=== PATIENT | male | born 1970 | race Caucasian/White ===

== ENCOUNTER → 2022-04-10 | Outpatient (CLI) | payer MEDICAID ==
[2022-04-10 14:53] LABS: African American GFR (CKD) 66.5 (60.0-200.0); Albumin 3.6 g/dL (3.8-4.9); Albumin/Globulin Ratio 0.5 (1.60-3.17); Anion Gap 10.8 mmol/L (10.00-18.00); BUN/Creat Ratio 27.93 Ratio (12.00-20.00); Blood Urea Nitrogen 39.1 mg/dL (9.0-27.0); Calcium 8.7 mg/dL (8.7-10.3); Carbon Dioxide 20.9 mmol/L (20.0-27.5); Globulin 7.1 g/dL (1.6-3.3); Non-African American GFR(CKD) 57.4 (60.0-200.0); Potassium 4.2 mmol/L (3.5-5.5); Total Bilirubin 1.3 mg/dL (0.30-1.20); Total Protein 10.6 g/dL (6.2-8.2)
[2022-04-11 08:48] LABS: C-Peptide 4.3 ng/mL (0.81-3.85)
== END | disposition home or self-care (01) ==
LOC: LABWHC1 09:26
PROVIDERS: ATTEND Internal Medicine Endocrinology, Diabetes & Metabolism
DX: E11.65 Type 2 diabetes mellitus with hyperglycemia (principal)
CPT/HCPCS: 36415; 80053; 82024; 82533; 84681

== ENCOUNTER 2022-10-19 18:05 | Emergency (ER) | payer MEDICAID, OTHER ==
[2022-10-19 18:52] VITALS: TEMP 98.4
[2022-10-19 21:08] VITALS: BP 104/77; PULSE 75; RESP 14
[2022-10-19] MEDS ORDERED: SODIUM CHLORIDE 0.9% 1,000 ML IV ONE (21:42)
[2022-10-19 22:01] LABS: Basophils # (A) 0.1 k/uL (0-0.2); Basophils % (A) 1 %; Eosinophils # (A) 0.1 k/uL (0-0.7); Eosinophils % (A) 1 %; HGB 13.4 gm/dL (13.0-17.5); Lymphocytes # (A) 1.6 k/uL (1.0-4.8); Lymphocytes % (A) 18 %; MCH 30.7 pg (25.0-35.0); MCHC 34.5 g/dL (31.0-37.0); Mean Platelet Volume 7.3; Monocytes # (A) 0.6 k/uL (0-1.0); Monocytes % (A) 6 %; Neutrophils # (A) 6.8 k/uL (1.3-7.7); Neutrophils % (A) 73 %; Platelet Count 177 k/uL (150-450); RBC 4.38 m/uL (4.30-5.90); RDW 13.9 % (11.5-15.5); WBC 9.3 k/uL (3.8-10.6)
[2022-10-19 22:12] LABS: Albumin 4.4 g/dL (3.5-5.0); Appearance,Urine Clear (Clear); Bilirubin,Urine Negative (Negative); Blood,Urine Negative (Negative); Calcium 9.2 mg/dL (8.4-10.2); Color,Urine Yellow; Glucose,Urine (UA) 3+ (Negative); Hyaline Casts,Urine 8 /lpf (0-2); Ketones,Urine Negative (Negative); Leukocyte Esterase,Urine Negative (Negative); Mucus,Urine Occasional /hpf; Nitrite,Urine Negative (Negative); PH, Urine 6.5 (5.0-8.0); Potassium 4.2 mmol/L (3.5-5.1); Protein,Urine 1+ (Negative); RBC,Urine 3 /hpf (0-5); Total Bilirubin 2.1 mg/dL (0.2-1.3); Total Protein 7.8 g/dL (6.3-8.2); WBC,Urine 2 /hpf (0-5)
--- NOTE | 2022-10-19 22:46 | CT ---
EXAMINATION TYPE: CT abdomen pelvis w con DATE OF EXAM: 10/19/2022 COMPARISON: None HISTORY: abdominal pain CT DLP: 1063.6 mGycm Automated exposure control for dose reduction was used. CONTRAST: Performed with IV Contrast, patient injected with 80ml mL of Isovue 300. Images obtained from the diaphragm to the floor of the pelvis with the IV contrast. The lung bases show mild subsegmental atelectasis left lower lobe. Heart size is normal. No pericardi al effusion. There are clips from cholecystectomy. Liver spleen and stomach pancreas appear intact. The bile ducts are not dilated. There is no adrenal mass. Kidneys show satisfactory contrast opacification. No hydronephrosis. There is 1 cm cortical cyst interpolar left kidney. No retroperitoneal adenopathy. Ureters are nondilated. The bladder is almost empty. No pelvic mass. No free fluid in the pelvis. There is no mesenteric edema. No ascites or free air. No sign of a bowel obstruction. Appendix is pos terior and appears normal. Delayed images show normal renal excretion. The lumbar vertebrae have normal alignment. No compression fracture. Posterior elements are intact. D isc spaces appear fairly normal. The bony pelvis is intact. The hip joints are intact. IMPRESSION: Minimal subsegmental atelectasis left lower lobe. No acute abnormality in the abdomen and pelvis. Nor mal appendix.
[2022-10-19] MEDS ORDERED: traMADol 50 MG STARTER PACK 3 TAB BTL PO STA (23:36)
--- NOTE | 2022-10-19 23:36 | ED ---
Abdominal Pain HPI - General Chief Complaint: Abdominal Pain Stated Complaint: lt side pain Time Seen by Provider: 10/19/22 20:42 Source: patient Mode of arrival: ambulatory Limitations: no limitations - History of Present Illness Initial Comments: 52-year-old male past history of cushions, CIDP, diabetes mellitus, hypertension and presents emergency Department with reported left flank pain, left groin pain and left testicular pain. Patient reports that for the past couple of days he has had symptoms of left-sided pain. Pain is reproducible with palpation and movement. He has been taking tramadol at home with minimal improvement in his pain. Admits to increased frequency of urination. No hematuria. Denies black or bloody stools. No diarrhea or constipation. Denies fevers. No testicular swelling or rash. Denies fevers. He denies any trauma. No numbness, tingling or weakness into his legs. No incontinence. No other alleviating, loading manager modifying factors - Related Data Previous Rx's Medication Instructions Recorded traMADol HCl [Ultram] 50 mg PO Q4HR PRN #18 tab 10/19/22 Allergies Allergy/AdvReac Type Severity Reaction Status Date / Time codeine Allergy Anaphylaxis Verified 10/19/22 18:52 Review of Systems ROS Statement: Those systems with pertinent positive or pertinent negative responses have been documented in the HPI. ROS Other: All systems not noted in ROS Statement are negative. Past Medical History Past Medical History: Diabetes Mellitus, Hypertension Additional Past Medical History / Comment(s): CIDP, Cushings History of Any Multi-Drug Resistant Organisms: None Reported Past Surgical History: No Surgical Hx Reported Past Psychological History: No Psychological Hx Reported Smoking Status: Never smoker Past Alcohol Use History: None Reported Past Drug Use History: None Reported General Exam Limitations: no limitations General appearance: alert, in no apparent distress Head exam: Present: atraumatic, normocephalic, normal inspection Eye exam: Present: normal appearance, PERRL, EOMI. Absent: scleral icterus, conjunctival injection, periorbital swelling ENT exam: Present: normal exam, mucous membranes moist Neck exam: Present: normal inspection. Absent: tenderness, meningismus, lymphadenopathy Respiratory exam: Present: normal lung sounds bilaterally. Absent: respiratory distress, wheezes, rales, rhonchi, stridor Cardiovascular Exam: Present: regular rate, normal rhythm, normal heart sounds. Absent: systolic murmur, diastolic murmur, rubs, gallop, clicks GI/Abdominal exam: Present: soft, normal bowel sounds. Absent: distended, tenderness, guarding, rebound, rigid exam: Present: normal inspection, other (left inguinal canal pain, no hernia appreciated). Absent: testicular tenderness, urethral discharge, scrotal swelling Extremities exam: Present: normal inspection, full ROM, normal capillary refill. Absent: tenderness, pedal edema, joint swelling, calf tenderness Back exam: Present: normal inspection Neurological exam: Present: alert, oriented X3, CN II-XII intact Psychiatric exam: Present: normal affect, normal mood Skin exam: Present: warm, dry, intact, normal color. Absent: rash Course Vital Signs 10/19/22 10/19/22 18:49 21:08 Temperature 98.4 F Pulse Rate 84 75 Respiratory 20 14 Rate Blood Pressure 103/77 104/77 O2 Sat by Pulse 98 100 Oximetry Medical Decision Making - Medical Decision Making Was pt. sent in by a medical professional or institution? @ -No Did you speak to anyone other than the patient for history? @ -No Did you review nursing and triage notes? @ -Yes and I agree Were old charts reviewed? @ -No Differential Diagnosis? @ -testicular torsion, kidney stone, ureteral stone, diverticulitis, colitis, hernia, ischemic bowel EKG interpreted by me (3pts min.)? @ -No X-rays interpreted by me (1pt min.)? @ -No CT interpreted by me (1pt min.)? @ Yes U/S interpreted by me (1pt. min.)? @ -No What testing was considered but not performed? (CT, X-rays, U/S, labs)? Why? @ None What meds were considered but not given? Why? @ -Pain meds but patient refused Did you discuss the management of the patient with other professionals? @ None Did you reconcile home meds? @ -No Was smoking cessation discussed for >3mins.? @ -No Was critical care preformed (if so, how long)? @ -No Were there social determinants of health that impacted care today? How? (Homelessness, low income, unemployed, alcoholism, drug addiction, transportation, low edu. Level, literacy, decrease access to med. care, residential, rehab)? @ None Was there de-escalation of care discussed even if they declined? (Discuss DNR or withdrawal of care, Hospice)? @ None What co-morbidities impacted this encounter? (DM, HTN, Smoking, COPD, CAD, Ca ncer, CVA, Hep., AIDS, mental health diagnosis, sleep apnea, morbid obesity)? @ -DM, HTN Was patient admitted / discharged? Upon arrival patient was placed into room 6. Thorough history and physical exam was performed. IV access was established and laboratory studies were conducted. The patient is given something for pain and nausea however he refuses. Auditory studies are reviewed. Creatinine 1.37 which is around the patient's baseline. Glucose 235. Urinalysis demonstrates some mucus however no bacteria. CT of abdomen and pelvis performed which demonstrates no acute process. Patient has no clinical signs of hernia at this time. He'll be discharged home and needs to follow up with primary care doctor for further evaluation of this pain. Return for any new or worsening symptoms. He is requesting tramadol for pain control which I did refill. Patient discharged home in stable condition Undiagnosed new problem with uncertain prognosis? @ -Yes Drug Therapy requiring intensive monitoring for toxicity (Heparin, Nitro, Insulin, Cardizem)? @ No Were any procedures done? @ No Diagnosis/symptom? @ -acute right groin pain Acute, or Chronic, or Acute on Chronic? @ -acute Uncomplicated (without systemic symptoms) or Complicated (systemic symptoms)? @ -[uncomplicated Side effects of treatment? @ None Exacerbation, Progression, or Severe Exacerbation] @ No Poses a threat to life or bodily function? @ No - Lab Data Result diagrams: 10/19/22 21:53 10/19/22 21:53 Lab Results 10/19/22 10/19/22 10/19/22 Range/Units 21:53 21:53 21:53 WBC 9.3 (3.8-10.6) k/uL RBC 4.38 (4.30-5.90) m/uL Hgb 13.4 (13.0-17.5) gm/dL Hct 39.0 (39.0-53.0) % MCV 89.0 (80.0-100.0) fL MCH 30.7 (25.0-35.0) pg MCHC 34.5 (31.0-37.0) g/dL RDW 13.9 (11.5-15.5) % Plt Count 177 (150-450) k/uL MPV 7.3 Neutrophils % 73 % Lymphocytes % 18 % Monocytes % 6 % Eosinophils % 1 % Basophils % 1 % Neutrophils # 6.8 (1.3-7.7) k/uL Lymphocytes # 1.6 (1.0-4.8) k/uL Monocytes # 0.6 (0-1.0) k/uL Eosinophils # 0.1 (0-0.7) k/uL Basophils # 0.1 (0-0.2) k/uL Sodium 139 (137-145) mmol/L Potassium 4.2 (3.5-5.1) mmol/L Chloride 100 (98-107) mmol/L Carbon Dioxide 30 (22-30) mmol/L Anion Gap 9 mmol/L BUN 16 (9-20) mg/dL Creatinine 1.37 H (0.66-1.25) mg/dL Est GFR (CKD-EPI)AfAm 68 (>60 ml/min/1.73 sqM) Est GFR (CKD-EPI)NonAf 59 (>60 ml/min/1.73 sqM) Glucose 235 H (74-99) mg/dL Plasma Lactic Acid Uli (0.7-2.0) mmol/L Calcium 9.2 (8.4-10.2) mg/dL Total Bilirubin 2.1 H (0.2-1.3) mg/dL AST 30 (17-59) U/L ALT 35 (4-49) U/L Alkaline Phosphatase 60 (38-126) U/L Total Protein 7.8 (6.3-8.2) g/dL Albumin 4.4 (3.5-5.0) g/dL Amylase 60 (30-110) U/L Lipase 85 (23-300) U/L Urine Color Yellow Urine Appearance Clear (Clear) Urine pH 6.5 (5.0-8.0) Ur Specific [place] 1.020 (1.001-1.035) Urine Protein 1+ H (Negative) Urine Glucose (UA) 3+ H (Negative) Urine Ketones Negative (Negative) Urine Blood Negative (Negative) Urine Nitrite Negative (Negative) Urine Bilirubin Negative (Negative) Urine Urobilinogen 2.0 (<2.0) mg/dL Ur Leukocyte Esterase Negative (Negative) Urine RBC 3 (0-5) /hpf Urine WBC 2 (0-5) /hpf Hyaline Casts 8 H (0-2) /lpf Urine Mucus Occasional H (None) /hpf 10/19/22 Range/Units 21:53 WBC (3.8-10.6) k/uL RBC (4.30-5.90) m/uL Hgb (13.0-17.5) gm/dL Hct (39.0-53.0) % MCV (80.0-100.0) fL MCH (25.0-35.0) pg MCHC (31.0-37.0) g/dL RDW (11.5-15.5) % Plt Count (150-450) k/uL MPV Neutrophils % % Lymphocytes % % Monocytes % % Eosinophils % % Basophils % % Neutrophils # (1.3-7.7) k/uL Lymphocytes # (1.0-4.8) k/uL Monocytes # (0-1.0) k/uL Eosinophils # (0-0.7) k/uL Basophils # (0-0.2) k/uL Sodium (137-145) mmol/L Potassium (3.5-5.1) mmol/L Chloride (98-107) mmol/L Carbon Dioxide (22-30) mmol/L Anion Gap mmol/L BUN (9-20) mg/dL Creatinine (0.66-1.25) mg/dL Est GFR (CKD-EPI)AfAm (>60 ml/min/1.73 sqM) Est GFR (CKD-EPI)NonAf (>60 ml/min/1.73 sqM) Glucose (74-99) mg/dL Plasma Lactic Acid Uli 1.0 (0.7-2.0) mmol/L Calcium (8.4-10.2) mg/dL Total Bilirubin (0.2-1.3) mg/dL AST (17-59) U/L ALT (4-49) U/L Alkaline Phosphatase (38-126) U/L Total Protein (6.3-8.2) g/dL Albumin (3.5-5.0) g/dL Amylase (30-110) U/L Lipase (23-300) U/L Urine Color Urine Appearance (Clear) Urine pH (5.0-8.0) Ur Specific [place] (1.001-1.035) Urine Protein (Negative) Urine Glucose (UA) (Negative) Urine Ketones (Negative) Urine Blood (Negative) Urine Nitrite (Negative) Urine Bilirubin (Negative) Urine Urobilinogen (<2.0) mg/dL Ur Leukocyte Esterase (Negative) Urine RBC (0-5) /hpf Urine WBC (0-5) /hpf Hyaline Casts (0-2) /lpf Urine Mucus (None) /hpf Disposition Clinical Impression: Abdominal pain Disposition: HOME SELF-CARE Condition: Stable Instructions (If sedation given, give patient instructions): Abdominal Pain (ED) Additional Instructions: You need further workup to determine the etiology of your pain. I recommend that you see orthopedics for groin strain/si joint discomfort. Take the pain medications as directed and return for any new or worsening symptoms Prescriptions: traMADol HCl [Ultram] 50 mg PO Q4HR PRN #18 tab PRN Reason: Pain Is patient prescribed a controlled substance at d/c from ED?: Yes When asked, does pt state using other controlled substances?: No If prescribed controlled substance>3 days was MAPS reviewed?: Prescribed <3 Days Referrals: Gage Boucher DO [Primary Care Provider] - 1-2 days Juan Mckeon DO [Doctor of Osteopathic Medicine] - 1-2 days Time of Disposition: 23:41
== END 2022-10-20 00:04 | disposition home or self-care (01) ==
LOC: EC 18:05
DX: R10.32 Left lower quadrant pain (principal); I10 Essential (primary) hypertension; E11.9 Type 2 diabetes mellitus without complications; Z88.5 Allergy status to narcotic agent
CPT/HCPCS: 36415; 80053; 82150; 83605; 83690; 85025; 81001; 74177; 99284; 96360; Q9967

== ENCOUNTER → 2022-12-30 | Outpatient (CLI) | payer BC, OTHER ==
[2022-12-30 23:29] LABS: ALT 48 U/L (10-49); AST 38 U/L (14-35); Albumin/Globulin Ratio 1.33 (1.60-3.17); Alkaline Phosphatase 60 U/L (41-126); BUN/Creat Ratio 11.91 Ratio (12.00-20.00); Blood Urea Nitrogen 13.1 mg/dL (9.0-27.0); Carbon Dioxide 26.6 mmol/L (20.0-27.5); Chloride 98 mmol/L (96-109); Chol/HDL Ratio 3.47 Ratio; Glucose 86 mg/dL (70-110); LDL Cholesterol,Calculated 22.9 mg/dL (0.0-131.0); Non-African American GFR(CKD) 76.8 (60.0-200.0); Potassium 3.5 mmol/L (3.5-5.5); Sodium 137 mmol/L (135-145)
== END | disposition home or self-care (01) ==
LOC: LABWHC1 14:37
PROVIDERS: ATTEND Internal Medicine Endocrinology, Diabetes & Metabolism
DX: E11.65 Type 2 diabetes mellitus with hyperglycemia (principal)
CPT/HCPCS: 36415; 80053; 80061; 82043; 82570; 83036; 84443